=== PATIENT | male | born 1955 | race Caucasian/White ===

== ENCOUNTER 2021-03-31 14:12 | Inpatient (IN) ==
[2021-03-31 15:23] LABS: BUN/Creatinine Ratio 11 (6-26); Blood Urea Nitrogen 11 mg/dL (8-23); Calcium 8.9 mg/dL (8.6-10.3); Carbon Dioxide 24 mEq/L (23-29); Chloride 102 mEq/L (98-107); Glucose 138 mg/dL (70-105); Osmolality,Calculated 282 (280-300); Sodium 135 mEq/L (136-145); Troponin I < 0.03 ng/mL (< 0.04); eGFR For African Americans > 60 (> 60); eGFR For Non-African Americans > 60 (> 60)
[2021-03-31 17:22] LABS: Basophils % 0.4 %; Immature Granulocytes % 0.3 % (0-4)
[2021-03-31 17:24] LABS: Eosinophils # 0.2 K/mcL (0.0-0.6); Eosinophils % 2.6 %; Hematocrit 41.4 % (37.5-50.1); Immature Platelets 4.6 % (1.1-6.1); Lymphocytes # 3.2 K/mcL (0.6-4.6); Lymphocytes % 35.5 %; Mean Corpuscular HGB Conc 31.4 g/dL (31.6-35.5); Mean Corpuscular Hemoglobin 27.6 pg (28.0-33.3); Mean Corpuscular Volume 87.9 fL (83.0-100.0); Mean Platelet Volume 9.9 fL (9.4-12.4); Monocytes # 0.6 K/mcL (0.0-1.3); Monocytes % 6.6 %; Platelet Count 142 K/mcL (140-400); Red Blood Count 4.71 M/mcL (4.19-5.50); Red Cell Distribution Width 13.3 % (11.5-14.5); Segmented Neutrophils % 54.6 %; White Blood Count 9.1 K/mcL (4.3-11.1)
[2021-03-31 17:32] LABS: Albumin 4.1 g/dL (3.5-5.7); Albumin/Globulin Ratio 1.2 (1.1-2.2); Bilirubin,Direct 0.2 mg/dL (0.0-0.2); Bilirubin,Indirect 0.6 mg/dL (0.0-1.0); Bilirubin,Total 0.8 mg/dL (0.3-1.0); Globulin 3.5 g/dL (2.4-3.5); Total Protein 7.6 g/dL (6.4-8.9)
[2021-03-31] MEDS ORDERED: Acetaminophen 325 MG TABLET PO PRN (23:09)
[2021-03-31] MEDS ORDERED: Ondansetron 4 MG/2 ML VIAL IVP PRN (23:09)
[2021-03-31] MEDS ORDERED: Melatonin 3 MG TABLET PO PRN (23:09)
[2021-03-31] MEDS ORDERED: Naloxone 0.4 MG/ML INJ IVP PRN (23:09)
[2021-03-31] MEDS ORDERED: D5% in Water 1,000 ML IVC PRN (23:12)
[2021-03-31] MEDS ORDERED: Dextrose Gel 15 GM/37.5 ML TUBE PO PRN ×2 (23:12)
[2021-03-31] MEDS ORDERED: *HR* Dextrose 50 % in Water (Vial) 50 ML VIAL IVP PRN (23:12)
[2021-04-01 05:44] LABS: Basophils % 0.5 %; Eosinophils # 0.2 K/mcL (0.0-0.6); Eosinophils % 2.7 %; Hematocrit 41.9 % (37.5-50.1); Hemoglobin 13.4 g/dL (12.9-16.9); Immature Granulocytes % 0.5 % (0-4); Immature Platelets 5.8 % (1.1-6.1); Lymphocytes # 2.9 K/mcL (0.6-4.6); Lymphocytes % 34.6 %; Mean Corpuscular Hemoglobin 27.6 pg (28.0-33.3); Mean Corpuscular Volume 86.4 fL (83.0-100.0); Mean Platelet Volume 10.5 fL (9.4-12.4); Monocytes # 0.6 K/mcL (0.0-1.3); Monocytes % 6.8 %; Neutrophils # 4.7 K/mcL (1.6-8.9); Platelet Count 131 K/mcL (140-400); Red Blood Count 4.85 M/mcL (4.19-5.50); Red Cell Distribution Width 13.4 % (11.5-14.5); Segmented Neutrophils % 54.9 %; White Blood Count 8.5 K/mcL (4.3-11.1)
[2021-04-01 05:57] LABS: INR 1.2; Prothrombin Time 13.4 Seconds (9.4-12.1)
[2021-04-01 05:59] LABS: Activated Partial Thrombo Time 28.6 Seconds (26.0-36.0)
[2021-04-01 06:02] LABS: Alanine Aminotransferase 38 Units/L (7-52); Albumin 4.1 g/dL (3.5-5.7); Albumin/Globulin Ratio 1.2 (1.1-2.2); Alkaline Phosphatase 47 Units/L (34-104); Aspartate Amino Transferase 38 Units/L (13-39); BUN/Creatinine Ratio 11 (6-26); Bilirubin,Total 0.8 mg/dL (0.3-1.0); Blood Urea Nitrogen 11 mg/dL (8-23); Carbon Dioxide 28 mEq/L (23-29); Chloride 101 mEq/L (98-107); Globulin 3.5 g/dL (2.4-3.5); Glucose 184 mg/dL (70-105); Magnesium 1.6 mg/dL (1.6-2.6); Osmolality,Calculated 288 (280-300); Phosphorous 3.3 mg/dL (2.7-4.5); Potassium 3.4 mEq/L (3.5-5.1); Sodium 137 mEq/L (136-145); Total Protein 7.6 g/dL (6.4-8.9); Troponin I < 0.03 ng/mL (< 0.04); eGFR For African Americans > 60 (> 60); eGFR For Non-African Americans > 60 (> 60)
[2021-04-01] MEDS: Insulin LISPRO 300 UNITS/3 ML VIAL SUBQ SCH ×4 (06:05→17:09)
[2021-04-01] MEDS ORDERED: Potassium Chloride 20 MEQ, Lidocaine 1% 2 ML in 0.9 % Sodium Chloride 250 ML IVPB ONE (09:00)
[2021-04-01] MEDS ORDERED: Magnesium Sulfate 1 GM/102 ML PIGGYBACK IVPB ONE (09:00)
[2021-04-01] MEDS: Gabapentin 400 MG CAPSULE PO SCH ×3 (09:28→21:21)
[2021-04-01] MEDS ORDERED: Perflutren Lipid Microsphere 1.3 ML in 0.9 % Sodium Chloride 8.7 ML IVP PRN (09:33)
[2021-04-01] MEDS ORDERED: Regadenoson 0.4 MG/5 ML SYRINGE IVP ONE (09:54)
[2021-04-01] MEDS: Aspirin 81 MG TAB.CHEW PO SCH (13:11)
[2021-04-01] MEDS: Famotidine 20 MG TABLET PO SCH (13:11)
[2021-04-01] MEDS: Ezetimibe [Zetia] 10 MG Tablet PO SCH (13:37)
[2021-04-01] MEDS: *HR* Heparin 5,000 UNIT/ML VIAL SQ SCH (17:11)
[2021-04-01] MEDS: Isosorbide MONOnitrate (24 HR) 60 MG TAB.ER.24H PO SCH (17:19)
[2021-04-01] MEDS ORDERED: Ranolazine 500 MG TAB.ER.12H PO SCH (18:00)
[2021-04-01] MEDS ORDERED: amLODIPine 5 MG TABLET PO SCH (21:00)
[2021-04-01] MEDS: hydrOXYzine pamoate 25 MG CAPSULE PO SCH (21:19)
[2021-04-01] MEDS: Ranolazine 500 MG TAB.ER.12H PO SCH (21:20)
[2021-04-01] MEDS: Valsartan 160 MG TABLET PO SCH (21:20)
[2021-04-02] MEDS: Insulin LISPRO 300 UNITS/3 ML VIAL SUBQ SCH ×5 (01:07→23:17)
[2021-04-02] MEDS: *HR* Heparin 5,000 UNIT/ML VIAL SQ SCH ×2 (05:27→16:40)
[2021-04-02 06:52] LABS: BUN/Creatinine Ratio 11 (6-26); Blood Urea Nitrogen 11 mg/dL (8-23); Carbon Dioxide 28 mEq/L (23-29); Chloride 101 mEq/L (98-107); Glucose 211 mg/dL (70-105); Magnesium 1.9 mg/dL (1.6-2.6); Osmolality,Calculated 286 (280-300); Phosphorous 2.7 mg/dL (2.7-4.5); Sodium 135 mEq/L (136-145); eGFR For African Americans > 60 (> 60); eGFR For Non-African Americans > 60 (> 60)
[2021-04-02] MEDS: Aspirin 81 MG TAB.CHEW PO SCH (08:53)
[2021-04-02] MEDS: Famotidine 20 MG TABLET PO SCH (08:53)
[2021-04-02] MEDS: Gabapentin 400 MG CAPSULE PO SCH ×3 (08:54→20:55)
[2021-04-02] MEDS: Isosorbide MONOnitrate (24 HR) 60 MG TAB.ER.24H PO SCH (08:54)
[2021-04-02] MEDS: Ranolazine 500 MG TAB.ER.12H PO SCH ×2 (08:55→20:55)
[2021-04-02] MEDS ORDERED: amLODIPine 5 MG TABLET PO SCH (09:00)
[2021-04-02] MEDS: Ezetimibe [Zetia] 10 MG Tablet PO SCH (09:20)
[2021-04-02] MEDS: amLODIPine 5 MG TABLET PO SCH (09:21)
[2021-04-02] MEDS ORDERED: Heparin 1,000 UNITS/500 mL 500 ML ONE (14:34)
[2021-04-02] MEDS ORDERED: *HR* Heparin 10,000 UNIT/10 ML VIAL ONE (14:35)
[2021-04-02] MEDS ORDERED: ISOVUE-370 200 ML INFUS..BTL ONE (14:35)
[2021-04-02] MEDS ORDERED: Nitroglycerin 1,000 MCG/5 ML VIAL IV ONE (14:35)
[2021-04-02] MEDS ORDERED: 0.9 % Sodium Chloride 2,000 ML ONE (14:36)
[2021-04-02] MEDS ORDERED: *HR* Midazolam HCl 2 MG/2 ML VIAL ONE (14:46)
[2021-04-02] MEDS ORDERED: *HR* FentaNYL (PF) 100 MCG/2 ML VIAL ONE (14:46)
[2021-04-02] MEDS: Valsartan 160 MG TABLET PO SCH (20:54)
[2021-04-02] MEDS: hydrOXYzine pamoate 25 MG CAPSULE PO SCH (20:54)
[2021-04-03] MEDS ORDERED: *HR* Metoprolol 5 MG/5 ML VIAL IVP ONE (03:36)
[2021-04-03] MEDS: *HR* Heparin 5,000 UNIT/ML VIAL SQ SCH (04:53)
[2021-04-03] MEDS: Insulin LISPRO 300 UNITS/3 ML VIAL SUBQ SCH (05:13)
[2021-04-03] MEDS: Famotidine 20 MG TABLET PO SCH (08:35)
[2021-04-03] MEDS: Isosorbide MONOnitrate (24 HR) 60 MG TAB.ER.24H PO SCH (08:35)
[2021-04-03] MEDS: Aspirin 81 MG TAB.CHEW PO SCH (08:35)
[2021-04-03] MEDS: amLODIPine 5 MG TABLET PO SCH (08:36)
[2021-04-03] MEDS: Gabapentin 400 MG CAPSULE PO SCH (08:36)
[2021-04-03] MEDS: Ranolazine 500 MG TAB.ER.12H PO SCH (08:36)
[2021-04-03] MEDS: Ezetimibe [Zetia] 10 MG Tablet PO SCH (08:39)
[2021-04-03] MEDS ORDERED: hydroCHLOROthiazide 25 MG TABLET PO SCH (09:00)
[2021-04-03 11:13] VITALS: BP 108/64
== END 2021-04-03 14:06 | disposition home or self-care (01) | DRG 287 ==
LOC: 3BNU 14:12 → EMEROOARM 14:12 → SUATTDRO 21:01 → 3BNU 22:51 → SUATTDRO 04-01 19:51
PROVIDERS: ADMIT Family Medicine; ATTEND Registered Nurse